=== PATIENT | male | born 1975 | race American Indian/Alaskan Native ===

== ENCOUNTER 2018-11-24 19:16 | Emergency (ER) | payer OTHER ==
[2018-11-24] MEDS ORDERED: TYLENOL ONE (19:48)
[2018-11-24] MEDS ORDERED: NACL 0.9% 1000 ML 1,000 ML IV ONE (19:55)
--- NOTE | 2018-11-24 19:57 | Emergency Department Report ---
Blank Doc - Documentation Documentation: This is a 43 y.o. male that presents with abdominal and nausea that started 1 hour ago. This initial assessment diagnostic orders/clinical plan/treatment (s) is/Are subject change based on patient's health status, clinical progression and re- assessment by fellow clinical providers in the ED. Further treatment and work-up at subsequent clinical providers discretion. Patient/guardians urged not to elope from their condition may be serious if not clinically assessed and lisa ged. Initial order include: Labs
[2018-11-24] MEDS ORDERED: TYLENOL PO ONE (20:10)
[2018-11-24 20:26] LABS: Basophils % (Auto) 0.3 % (0.0-1.8); Eosinophils % (Auto) 0.2 % (0.0-4.3); Hematocrit 44.7 % (35.5-45.6); Hemoglobin 14.9 gm/dl (11.8-15.2); Lymphocytes # (Auto) 1.8 K/mm3 (1.2-5.4); Lymphocytes % (Auto) 14.2 % (13.4-35.0); Mean Corpuscular HGB Conc 33 % (32-34); Mean Corpuscular Volume 84 fl (84-94); Monocytes # (Auto) 0.4 K/mm3 (0.0-0.8); Monocytes % (Auto) 2.9 % (0.0-7.3); Platelet Count 180 K/mm3 (140-440); Red Blood Count 5.33 M/mm3 (3.65-5.03); Red Cell Distribution Width 14.3 % (13.2-15.2)
[2018-11-24 20:43] LABS: Alanine Aminotransferase 44 units/L (7-56); Albumin 4.9 g/dL (3.9-5); BUN/Creatinine Ratio 14; Blood Urea Nitrogen 13 mg/dL (9-20); Calcium 9.5 mg/dL (8.4-10.2); Hemolysis Index 24
[2018-11-24 20:44] LABS: Bilirubin,Urine NEG (Negative); Blood,Urine NEG (Negative); Color,Urine Colorless (Yellow); Urobilinogen,Urine < 2.0 mg/dL (<2.0)
--- NOTE | 2018-11-24 23:29 | Emergency Department Report ---
ED General Adult HPI - General Chief complaint: Abdominal Pain Stated complaint: ABD PAIN Time Seen by Provider: 11/24/18 19:54 Source: patient Mode of arrival: Ambulatory Limitations: No Limitations - History of Present Illness Initial comments: Patient is a 43-year-old malewith past medical history who presents with abdominal pain that occurred earlier on today. He states that it certainly one hour ago it is a 10 out of 10 and he states he's never had abdominal pain like this before he denies having any nausea or vomiting. He denies having any bliss rgeries or any trauma to the belly no chest pain no fever no chills. Severity scale (0 -10): 10 - Related Data Allergies Allergy/AdvReac Type Severity Reaction Status Date / Time No Known Allergies Allergy Unverified 11/24/18 19:17 ED Review of Systems ROS: Stated complaint: ABD PAIN Other details as noted in HPI Constitutional: denies: chills, fever Eyes: denies: eye pain, eye discharge, vision change ENT: denies: ear pain, throat pain Respiratory: denies: see HPI, cough, shortness of breath, wheezing Cardiovascular: denies: chest pain, palpitations Endocrine: no symptoms reported Gastrointestinal: abdominal pain. denies: nausea, diarrhea Genitourinary: denies: urgency, dysuria Musculoskeletal: denies: back pain, joint swelling, arthralgia Skin: denies: rash, lesions Neurological: denies: headache, weakness, paresthesias Psychiatric: denies: anxiety, depression Hematological/Lymphatic: denies: easy bleeding, easy bruising ED Past Medical Hx - Past Medical History Previous Medical History?: No - Surgical History Past Surgical History?: No - Social History Smoking Status: Never Smoker Substance Use Type: None ED Physical Exam - General Limitations: No Limitations General appearance: alert, in no apparent distress - Head Head exam: Present: atraumatic, normocephalic - Eye Eye exam: Present: normal appearance - ENT ENT exam: Present: mucous membranes moist - Neck Neck exam: Present: normal inspection - Respiratory Respiratory exam: Present: normal lung sounds bilaterally. Absent: respiratory distress - Cardiovascular Cardiovascular Exam: Present: regular rate, normal rhythm. Absent: systolic murmur, diastolic murmur, rubs, gallop - GI/Abdominal GI/Abdominal exam: Present: soft, normal bowel sounds - Rectal Rectal exam: Present: deferred - Extremities Exam Extremities exam: Present: normal inspection - Back Exam Back exam: Present: normal inspection - Neurological Exam Neurological exam: Present: alert, oriented X3 - Psychiatric Psychiatric exam: Present: normal affect, normal mood - Skin Skin exam: Present: warm, dry, intact, normal color. Absent: rash ED Course Vital Signs 11/24/18 11/24/18 11/24/18 19:32 19:43 20:12 Temperature 97.4 F L 97.5 F L Pulse Rate 69 Respiratory 18 18 18 Rate Blood Pressure 217/126 221/130 Blood Pressure [Left] O2 Sat by Pulse 100 Oximetry 11/24/18 11/25/18 11/25/18 23:27 00:00 01:00 Temperature 98.2 F Pulse Rate 79 Respiratory 18 Rate Blood Pressure 156/94 156/100 Blood Pressure 168/105 [Left] O2 Sat by Pulse 100 96 99 Oximetry ED Medical Decision Making - Lab Data Result diagrams: 11/24/18 20:06 11/24/18 20:06 Lab Results 11/24/18 11/24/18 11/24/18 Range/Units 19:57 20:06 20:06 WBC 12.9 H (4.5-11.0) K/mm3 RBC 5.33 H (3.65-5.03) M/mm3 Hgb 14.9 (11.8-15.2) gm/dl Hct 44.7 (35.5-45.6) % MCV 84 (84-94) fl MCH 28 (28-32) pg MCHC 33 (32-34) % RDW 14.3 (13.2-15.2) % Plt Count 180 (140-440) K/mm3 Lymph % (Auto) 14.2 (13.4-35.0) % [place] % (Auto) 2.9 (0.0-7.3) % Eos % (Auto) 0.2 (0.0-4.3) % Baso % (Auto) 0.3 (0.0-1.8) % Lymph # 1.8 (1.2-5.4) K/mm3 [place] # 0.4 (0.0-0.8) K/mm3 Eos # 0.0 (0.0-0.4) K/mm3 Baso # 0.0 (0.0-0.1) K/mm3 Seg Neutrophils % 82.4 H (40.0-70.0) % Seg Neutrophils # 10.7 H (1.8-7.7) K/mm3 Sodium 143 (137-145) mmol/L Potassium 3.0 L (3.6-5.0) mmol/L Chloride 101.1 (98-107) mmol/L Carbon Dioxide 24 (22-30) mmol/L Anion Gap 21 mmol/L BUN 13 (9-20) mg/dL Creatinine 0.9 (0.8-1.5) mg/dL Estimated GFR > 60 ml/min BUN/Creatinine Ratio 14 % Glucose 145 H (75-100) mg/dL Calcium 9.5 (8.4-10.2) mg/dL Total Bilirubin 0.60 (0.1-1.2) mg/dL AST 33 (5-40) units/L ALT 44 (7-56) units/L Alkaline Phosphatase 58 (35-129) units/L Total Protein 8.0 (6.3-8.2) g/dL Albumin 4.9 (3.9-5) g/dL Albumin/Globulin Ratio 1.6 % Urine Color Colorless (Yellow) Urine Turbidity Clear (Clear) Urine pH 7.0 (5.0-7.0) Ur Specific [place] 1.008 (1.003-1.030) Urine Protein 100 mg/dl (Negative) mg/dL Urine Glucose (UA) Neg (Negative) mg/dL Urine Ketones 20 (Negative) mg/dL Urine Blood Neg (Negative) Urine Nitrite Neg (Negative) Urine Bilirubin Neg (Negative) Urine Urobilinogen < 2.0 (<2.0) mg/dL Ur Leukocyte Esterase Neg (Negative) Urine WBC (Auto) 1.0 (0.0-6.0) /HPF Urine RBC (Auto) 3.0 (0.0-6.0) /HPF - Radiology Data Radiology results: report reviewed, image reviewed CT abdomen: Shows distended gallbladder with no stones notified in the lumen - Medical Decision Making Cdx: Gastritis ddx: SBO, electrolyte abnormality, cholelithiasis I will give pain mediation, blood work and ct scan of abdomen. CT scan of gallbladder shows pericholecystic fluid discussed findings with patient patient is asymptomatic no pain in right upper quadrant he states that he does not want an ultrasound of his gallbladder and he is requesting to leave told patient to return to the ER if any worsening signs of abdominal pain or nausea or vomiting. Patient agrees with plan for discharge additional verbal discharge instructions were given Critical care attestation.: If time is entered above; I have spent that time in minutes in the direct care of this critically ill patient, excluding procedure time. ED Disposition Clinical Impression: Abdominal pain Qualifiers: Abdominal location: generalized Qualified Code(s): R10.84 - Generalized abdominal pain Disposition: TO HOME OR SELFCARE Is pt being admited?: No Does the pt Need Aspirin: No Condition: Stable Instructions: Abdominal Pain (ED) Referrals: BREANA SANTORO MD [Primary Care Provider] - 3-5 Days
[2018-11-25] MEDS ORDERED: SOLU-Medrol IV ONE (00:41)
[2018-11-25] MEDS ORDERED: BENADRYL IV ONE (00:41)
[2018-11-25 01:20] VITALS: BP 156/100
--- NOTE | 2018-11-25 01:30 | Cat Scan Report ---
PROCEDURE: CT ABDOMEN PELVIS W CON TECHNIQUE: Computerized axial tomography of the abdomen and pelvis was performed after the IV inject ion of iodinated nonionic contrast. HISTORY: abd pain COMPARISONS: None . FINDINGS: Visualized lower thorax: No significant abnormality. Liver: Normal size and attenuation. Spleen: Normal size and attenuation. Gallbladder and biliary system: The gallbladder lumen is slightly distended. There is pericholecystic fluid. No definitive stones are identified. No dilatation of the biliary ductal system. Inflammatory process of the gallbladder is possible. Further evaluation with ultrasound and possibly HIDA scan wo uld be of benefit.. Pancreas: Normal. Adrenals: Normal. Kidneys: Normal. GI tract: No obstruction. The cecum and appendix are normal. Mild diverticular change in the distal colon. No inflammatory process. . Lymph nodes and mesentery: Normal. Vasculature: Normal.. Bladder: Normal. Reproductive organs: Normal. Peritoneum: No free fluid. Musculoskeletal structures: No significant abnormality. Other: None . IMPRESSION: The gallbladder lumen is distended. There is pericholecystic fluid. No evidence of stone s on this study. Further evaluation with ultrasound and possibly HIDA scan would be of benefit. Infla mmatory process of the gallbladder is suspected. There is no evidence of intestinal or urinary tract obstruction. No ileus or enteritis. The appendix is normal. Mild diverticulosis of the distal colon. . This document is electronically signed by Shila Easley DO., November 25 2018 01:27:57 AM ET
== END 2018-11-25 02:06 | disposition home or self-care (01) ==
LOC: ED 19:16
DX: R10.84 Generalized abdominal pain (principal)
CPT/HCPCS: 36415; 74177; 80053; 81001; 85025; 96374; 96375; 99284; J1200; J2930; Q9967